=== PATIENT | female | born 1945 | race Caucasian/White ===

== ENCOUNTER 2018-03-17 15:23 | Outpatient (CLI) | payer MEDICARE, MEDICAID | END 2018-03-17 23:59 | disposition home or self-care (01) | LOC: RAD 15:23 | PROVIDERS: ATTEND Internal Medicine Gastroenterology | DX: R13.14 Dysphagia, pharyngoesophageal phase (principal); Z87.891 Personal history of nicotine dependence | CPT/HCPCS: 74230 ==

== ENCOUNTER 2019-02-07 15:23 | Day surgery (SDC) | payer MEDICARE, MEDICAID ==
[2019-02-03 13:58] LABS: BASOPHILS # (AUTO) 0.1 X10'3 (0-0.2); BASOPHILS % (AUTO) 1.2 % (0-1); EOSINOPHILS # (AUTO) 0.6 X10'3 (0-0.9); EOSINOPHILS % (AUTO) 5.5 % (0-6); HEMATOCRIT 38.8 % (35.0-45.0); HEMOGLOBIN 12.9 g/dl (12.0-16.0); LYMPHOCYTES # (AUTO) 2.8 X10'3 (1.1-4.8); LYMPHOCYTES % (AUTO) 25.9 % (21-51); MEAN CORPUSCULAR HEMOGLOBIN 29.5 PG (27.0-31.0); MEAN CORPUSCULAR HGB CONC 33.3 g/dL (33.0-36.5); MEAN CORPUSCULAR VOLUME 88.6 FL (78-98); MEAN PLATELET VOLUME 7.2 FL (7.4-10.4); MONOCYTES # (AUTO) 0.6 X10'3 (0-0.9); MONOCYTES % (AUTO) 5.3 % (2-12); NEUTROPHILS # (AUTO) 6.6 X10'3 (1.8-7.7); NEUTROPHILS % (AUTO) 62.1 % (42-75); PLATELET COUNT 329 X10'3 (140-440); RED BLOOD COUNT 4.39 X10'6 (4.20-5.60); WHITE BLOOD COUNT 10.6 X10'3 (4.5-11.0)
[2019-02-03 14:07] LABS: ALBUMIN 3.3 G/DL (3.4-5.0); ANION GAP 9 (8-16); BLOOD UREA NITROGEN 12 MG/DL (7-18); BUN/CREATININE RATIO 12.8 (6.6-38.0); CALCIUM 9.2 MG/DL (8.5-10.1); CHLORIDE 103 MMOL/L (99-107); CREATININE 0.94 MG/DL (0.40-0.90); GLUCOSE 123 MG/DL (70-104); POTASSIUM 3.5 MMOL/L (3.5-5.1); SODIUM 138 MMOL/L (135-145); TOTAL CARBON DIOXIDE 26.3 MMOL/L (24-32); eGFR 58 ML/MIN
[2019-02-03 14:11] LABS: PARTIAL THROMBOPLASTIN TIME 29 SECONDS (22-32)
[2019-02-07] VITALS (11 sets, daily range): BP systolic 111–133; BP diastolic 52–82
[~2019-02-07] VITALS: Ht 162.6 cm; Wt 109.5 kg
[2019-02-07] MEDS ORDERED: EST1T PO (16:12)
[2019-02-07] MEDS ORDERED: CETI-102 PO (16:13)
[2019-02-07] MEDS ORDERED: MULT-1085 PO (16:14)
[2019-02-07] MEDS ORDERED: LEVO112T5 PO (16:27)
[2019-02-07] MEDS ORDERED: FLUT16SP2 BOTHNARES (16:33)
[2019-02-07] MEDS ORDERED: NYST1000 PO (16:34)
[2019-02-07] MEDS ORDERED: CLOT15CR10 TP (16:35)
[2019-02-07] MEDS ORDERED: FURO-150 PO (16:35)
[2019-02-07] MEDS ORDERED: LOSA100T57 PO (16:36)
[2019-02-07] MEDS ORDERED: ACET-75 PO (16:37)
[2019-02-07] MEDS ORDERED: POTA10TA19 PO (16:38)
[2019-02-07] MEDS ORDERED: ZAR5T PO (16:40)
[2019-02-07] MEDS ORDERED: RED600TA PO (16:44)
[2019-02-07] MEDS ORDERED: diphenhydrAMINE 25mg capsule PO ONE (17:50)
[2019-02-07] MEDS ORDERED: LORazepam 0.5 MG tablet PO ONE (17:50)
[2019-02-07] MEDS ORDERED: LIDOcaine/PRILOcaine 5gm cream TP ONE (17:50)
[2019-02-07] MEDS ORDERED: normal saline 1000ml 1,000 ML IV SCH (17:50)
[2019-02-07] MEDS ORDERED: iohexol 350MG/ML 100ml bottle IV ONE (18:49)
[2019-02-07] MEDS ORDERED: fentaNYL/PF 50MCG/1 ML 2ML syringe ONE (18:49)
[2019-02-07] MEDS ORDERED: LIDOcaine 1% (10mg/ml)w/preservative injection 20ml MDV ONE (18:49)
[2019-02-07] MEDS ORDERED: midazolam 2 mg/2 ml injection ONE ×2 (18:49→18:59)
[2019-02-07] MEDS ORDERED: nitroGLYCERIN-Tridil 50MG/D5W 250 ML IV ONE (18:53)
[2019-02-07] MEDS ORDERED: verapamil 2.5 mg/ml inj IV ONE (18:53)
[2019-02-07] MEDS ORDERED: heparin 1,000unit/ml 10ml vial 10 ML ONE (18:53)
--- NOTE | 2019-02-07 19:20 | NUR ---
RECEIVED REPORT FROM MANUFACTURING TEACHER RN. AWAITING PATIENT ARRIVAL TO ROOM 309.
--- NOTE | 2019-02-07 19:30 | NUR ---
I received from Charge nurse, Cami GRIFFITHS regarding this patient who would be coming from the labor law [facility]. Patient arrived to the floor. She is alert and oriented. She has no complaints of pain. Abida bolton nurse from the labor law professor is present. Vitals are taken, and pulses are checked. The Right groin is checked for hematoma which there is not and the patient has a Vascular band to the right wrist holding pressure where a radial approach had been attempted. I was given in this bedside report that there are only 3 cc of air and that it may come off at 2100 hours. Family is with the patient. Assessment completed and assumed care of patient.
[2019-02-07] MEDS ORDERED: nitroGLYCERIN 0.4mg SUBLingual tab SL PRN (20:25)
[2019-02-07] MEDS ORDERED: ondansetron/PF 4mg/2ml inj IV PRN (20:25)
[2019-02-07] MEDS ORDERED: proCHLORperazine 10 MG/2 ml inj IV PRN (20:25)
[2019-02-07] MEDS ORDERED: OXAZEpam 15mg capsule PO PRN (20:25)
--- NOTE | 2019-02-07 22:00 | NUR ---
I used the doppler on last peripheral pulse check. I could palpate the pulses but I wanted to check with the doppler because the patient's feet were so edematous that I had a hard time finding them and I wanted to make sure that the pulses were good.
--- NOTE | 2019-02-07 22:00 | NUR ---
This patient was discharged. I went through all the instructions with the patient and her family. The patient and the family asked questions and stated that all were answered to their satisfaction. She was awake, alert and oriented. Last vitals were taken at this time and were all within normal limits. The patient had no complaints of pain. The patient dressed and all personal items were accounted for, the son even came back and rechecked the room. The patient was seated in the wheel chair and left in a stable condition. She was discharged to her family members and given a copy of the discharge papers that included a follow up appt with Dr. Lopez.
[2019-02-08] MEDS ORDERED: nystatin 500,000 unit/5ML UD oral suspension PO SCH (02:00)
[2019-02-08] MEDS ORDERED: acetaminophen 325mg tablet PO SCH (02:00)
[2019-02-08] MEDS ORDERED: levoTHYROXINE 112mcg tablet PO SCH (07:00)
[2019-02-08] MEDS ORDERED: clotrimazole topical cream 15gm tube TP SCH (08:00)
[2019-02-08] MEDS ORDERED: furosemide 20MG tablet PO SCH (08:00)
[2019-02-08] MEDS ORDERED: fluticasone nasal spray 16GM bottle NS SCH (08:00)
[2019-02-08] MEDS ORDERED: losartan 50mg tablet PO SCH (08:00)
[2019-02-08] MEDS ORDERED: multivitamins, therapeutics tablet PO SCH (08:00)
[2019-02-08] MEDS ORDERED: estradiol 1mg tablet PO SCH (08:00)
[2019-02-08] MEDS ORDERED: potassium chloride 10mEq ER tablet PO SCH (08:00)
[2019-02-08] MEDS ORDERED: cetirizine 10mg tablet PO SCH (08:00)
[2019-02-08] MEDS ORDERED: metolazone 2.5mg tablet PO SCH (08:00)
[2019-02-08] MEDS ORDERED: [UNRECOGNIZED DRUG - REMARK] PO NR (10:00)
== END 2019-02-07 22:15 | disposition home or self-care (01) ==
LOC: SSTAY O 15:23 → MED 3N 19:30
PROVIDERS: ADMIT Internal Medicine Interventional Cardiology; ATTEND Internal Medicine Interventional Cardiology
DX: R94.30 Abnormal result of cardiovascular function study, unspecified (principal); G47.33 Obstructive sleep apnea (adult) (pediatric); E11.9 Type 2 diabetes mellitus without complications; I10 Essential (primary) hypertension; I71.4 Abdominal aortic aneurysm, without rupture; E03.9 Hypothyroidism, unspecified; Z88.5 Allergy status to narcotic agent; Z91.048 Other nonmedicinal substance allergy status; Z79.899 Other long term (current) drug therapy
CPT/HCPCS: 36415; 80048; 85025; 85610; 85730; 93005; 93458; A6257; C1769; G0378; J1644; J2001; J2250; J3010; J7030; Q0163; Q9967; 99152; 99153; A5120; A6258; C1794; J3490